=== PATIENT | male | born 1945 | race Caucasian/White ===

== ENCOUNTER 2019-04-29 12:21 | Emergency (ER) | payer OTHER, MEDICARE ==
[2019-04-29 13:05] VITALS: BP 179/85
--- NOTE | 2019-04-29 13:24 | UC ---
Skin Complaint HPI - HPI Summary HPI Summary: 74-year-old male who has what he thinks is a cyst on the back of his head. His inserted an insulin needle but states she got one drop of exudate from that. He states it hurts mildly tender. He denies any fever or chills. No history of abscesses. - History of Current Complaint Chief Complaint: UCSkin Time Seen by Provider: 04/29/19 12:56 Stated Complaint: SKIN COMPLAINT Hx Obtained From: Patient Onset/Duration: Gradual Onset, Lasting Days Skin Exposure Onset/Duration: Days Ago Timing: Constant Onset Severity: Mild Current Severity: Mild Pain Intensity: 4 Location: Other - Back of neck Character: Swelling, Redness - Minimal erythema., Raised Aggravating Factor(s): Nothing Alleviating Factor(s): Heat - Patient states when he applies heat to the area it feels better. Associated Signs & Symptoms: Positive: Negative - Allergy/Home Medications Allergies/Adverse Reactions: Allergies Allergy/AdvReac Type Severity Reaction Status Date / Time amlodipine Allergy Unknown Verified 04/29/19 13:23 Reaction Details ciprofloxacin Allergy See Comment Verified 04/29/19 13:23 lisinopril Allergy Unknown Verified 04/29/19 13:23 Reaction Details Penicillins Allergy Hives Verified 04/29/19 13:23 simvastatin Allergy Unknown Verified 04/29/19 13:23 Reaction Details spironolactone Allergy Unknown Verified 04/29/19 13:23 Reaction Details sulfamethoxazole Allergy Unknown Verified 04/29/19 13:23 [From Bactrim] Reaction Details testosterone Allergy Dizziness Verified 04/29/19 13:23 trimethoprim [From Bactrim] Allergy Unknown Verified 04/29/19 13:23 Reaction Details Home Medications: Home Medications Clindamycin Cap(NF) [Clindamycin Cap 300 mg Cap(NF)] 300 mg PO QID 10 Days #40 cap 04/29/19 [Rx] Furosemide TAB* [Lasix TAB*] 1 tab DAILY 04/29/19 [History Confirmed 04/29/19] Levothyroxine TAB* [Synthroid TAB*] 1 tab DAILY 04/29/19 [History Confirmed ] Potassium Chlor TAB* [Klor Con ER TAB 10 MEQ*] 1 tab DAILY 04/29/19 [History Confirmed 04/29/19] PMH/Surg Hx/FS Hx/Imm Hx Previously Healthy: Yes Endocrine History: Thyroid Disease Cardiovascular History: Hypertension - Surgical History Surgical History: Yes Surgery Procedure, Year, and Place: pituitary tumor. thyroid cyst - Family History Known Family History: Positive: Unknown - Social History Occupation: Retired Lives: With Family Alcohol Use: None Substance Use Type: None Smoking Status (MU): Never Smoked Tobacco Review of Systems All Other Systems Reviewed And Are Negative: Yes Skin: Positive: Other - Cyst-like area and back of neck which is mildly tender. Is Patient Immunocompromised?: No Physical Exam Triage Information Reviewed: Yes Appearance: Well-Appearing, No Pain Distress, Well-Nourished Vital Signs: Initial Vital Signs Temp 96.7 F 04/29/19 12:56 Pulse 82 04/29/19 12:56 Resp 16 04/29/19 12:56 BP 179/85 04/29/19 12:56 Pulse Ox 100 04/29/19 12:56 Vital Signs Reviewed: Yes Skin: Positive: Other - Patient has a hard lump on the back of is not with minimal erythema minimal tenderness on palpation. Not fluctuant. It measures approximately 1.0 cm in diameter. Course/Dx - Course Course Of Treatment: Patient is comfortable here. If this is an abscess it is not ready to be incised. I am not 100% sure this is an abscess versus a cyst like structure. I am starting patient on clindamycin and a follow-up with either a local surgeon , Dr. Wright or a [facility] surgeon, Dr. Dumont. The patient preferred to follow-up in [place]. - Diagnoses Provider Diagnosis: Abscess Discharge ED - Sign-Out/Discharge Documenting (check all that apply): Patient Departure All imaging exams completed and their final reports reviewed: No Studies - Discharge Plan Condition: Good Disposition: HOME Prescriptions: Clindamycin Cap(NF) [Clindamycin Cap 300 mg Cap(NF)] 300 mg PO QID 10 Days #40 cap Patient Education Materials: Abscess (ED) Referrals: Dhaval Ibarra MD [Primary Care Provider] - Matthew Dumont MD [Medical Doctor] - Suresh Gant [Medical Doctor] - Additional Instructions: Warm moist compresses to the area 4-6 times a day for 20 minutes each time. Take the antibiotic with food. Called the surgeon today and make an appointment for Saturday for a recheck. - Billing Disposition and Condition Condition: GOOD Disposition: Home
== END 2019-04-29 13:33 | disposition home or self-care (01) ==
LOC: UCCORT 12:21
DX: L02.811 Cutaneous abscess of head [any part, except face] (principal); E07.9 Disorder of thyroid, unspecified; I10 Essential (primary) hypertension; Z88.0 Allergy status to penicillin; Z88.1 Allergy status to other antibiotic agents; Z88.8 Allergy status to other drugs, medicaments and biological substances; Z88.2 Allergy status to sulfonamides; Z79.890 Hormone replacement therapy; Z79.899 Other long term (current) drug therapy
CPT/HCPCS: 99202; G0463